=== PATIENT | female | born 1965 | race Caucasian/White ===

== ENCOUNTER 2018-03-20 06:08 | Outpatient (CLI) | payer BC | END 2018-03-20 06:09 | disposition critical access hospital (66) | LOC: EMS 06:08 | PROVIDERS: ATTEND Surgery | DX: R06.02 Shortness of breath (principal); R61 Generalized hyperhidrosis | CPT/HCPCS: A0425; A0427 ==

== ENCOUNTER 2018-03-20 06:22 | Emergency (ER) | payer BC ==
[2018-03-20 06:59] LABS: BASOPHILS % (AUTO) 0.5 %; EOSINOPHILS % (AUTO) 0.2 %; HGB - HEMOGLOBIN 8.5 g/dL (12.0-16.0); LYMPHOCYTES % (AUTO) 3.7 %; MEAN CORPUSCULAR HEMOGLOBIN 25.6 pg (27.0-31.0); MEAN CORPUSCULAR VOLUME 82.8 fL (81.0-99.0); MEAN PLATELET VOLUME 7.3 fL (7.9-10.8); MONOCYTES % (AUTO) 3.6 %; PLT - PLATELET COUNT 538 10^3/uL (130-450); RED CELL DISTRIBUTION WIDTH 17.7 % (12.0-15.0); WHITE BLOOD COUNT 20.2 x10^3/uL (4.8-10.8)
[2018-03-20 07:01] LABS: ABNORMAL LYMPHS % (MANUAL) 0 %; INR 1.6 (0.8-1.2); PT - PROTHROMBIN TIME 18.3 secs (9.9-12.6)
[2018-03-20 07:10] LABS: ALBUMIN/GLOBULIN RATIO 0.4 (1.0-2.2); BILIRUBIN,TOTAL 1.4 mg/dL (0.2-1.0); CALCIUM 7.8 mg/dL (8.5-10.3); CREATININE 1.1 mg/dL (0.4-1.0); TOTAL PROTEIN 7.4 g/dL (6.7-8.2)
--- NOTE | 2018-03-20 07:19 | ED Physician Documentation ---
History of Present Illness - Stated complaint Stated Complaint: SOA - Chief complaint Chief Complaint: Resp - Additonal information Additional information: hx [facility] pt [facility] report not available at this time 52 f states she has a pmhx of COPD DM and I assume HTN and HLD based on her meds recent medical care for a diabetic foot wound - she has a wound vac on and a PICC line for ab but she doesn't know what ab aslo recent transfusion for anemia - she says she has been anemic her whole life but does not know why - she does not recall a GI work up - she state no bloody black BM she states she started to get SOA yesterday morning worsened throughout the day severe last night 911 called per report she has rales and sats < 50% was placed in BiPAP, given lasix nitro paste and morphine with improvement she denies fever denies cough denies CP no leg edema no travel no hx cardiac dz or CHF Review of Systems Constitutional: denies: Fever, Chills Throat: denies: Sore throat Cardiac: denies: Chest pain / pressure, Palpitations Respiratory: reports: Dyspnea. denies: Cough GI: denies: Abdominal Pain, Nausea, Vomiting Neurologic: denies: Generalized weakness Endocrine: denies: Easy bruising / bleeding Immunocompromised: denies: Immunocompromised PD PAST MEDICAL HISTORY - Past Medical History Past Medical History: Yes Respiratory: None Neuro: None Endocrine/Autoimmune: Type 1 diabetes HEENT: None Derm: None - Past Surgical History Past Surgical History: Yes - Present Medications Home Medications: Ambulatory Orders Medication Instructions Recorded Confirmed Albuterol Sulfate [Proair Hfa 2 puffs INH Q4H PRN 03/20/18 03/20/18 Inhaler] Aspirin 325 mg PO DAILY 03/20/18 03/20/18 Cholecalciferol (Vitamin D3) 1,000 unit PO BID 03/20/18 03/20/18 [Vitamin D3] Cilostazol 100 mg PO BID 03/20/18 03/20/18 Dextroamphetamine/Amphetamine 45 mg PO BID 03/20/18 03/20/18 [Adderall 30 mg Tablet] Diltiazem HCl [Diltiazem ER] 120 mg PO DAILY 03/20/18 03/20/18 Duloxetine HCl 90 mg PO DAILY 03/20/18 03/20/18 Ferrous Sulfate 325 mg PO TID 03/20/18 03/20/18 Gabapentin 300 mg PO TID 03/20/18 03/20/18 Hydrocodone/Acetaminophen 2 tab PO DAILY PRN 03/20/18 03/20/18 [Hydrocodone-Acetamin 5-325 mg] Insulin Glargine [Lantus Solostar] 30 units SUBQ BID 03/20/18 03/20/18 Insulin Lispro [Humalog Kwikpen 0 - 3 units SUBQ TIDWM 03/20/18 03/20/18 U-100] Levothyroxine Sodium [Synthroid] 50 mcg PO QDAC 03/20/18 03/20/18 Lisinopril 40 mg PO DAILY 03/20/18 03/20/18 Metoclopramide [Reglan] 10 mg PO ACHS 03/20/18 03/20/18 Prazosin HCl 5 mg PO QPM 03/20/18 03/20/18 Prazosin [Minipress] 1 mg PO 0800,1200,1700 03/20/18 03/20/18 Rosuvastatin Calcium [Crestor] 40 mg PO QPM 03/20/18 03/20/18 clonazePAM [Clonazepam] 0.5 mg PO DAILY 03/20/18 03/20/18 clonazePAM [Clonazepam] 1 mg PO QPM 03/20/18 03/20/18 - Allergies Allergies/Adverse Reactions: Allergies Allergy/AdvReac Type Severity Reaction Status Date / Time Penicillins AdvReac Unknown Verified 03/20/18 06:38 - Social History Does the pt smoke?: No Smoking Status: Never smoker Does the pt drink ETOH?: No Does the pt have substance abuse?: No - Immunizations Immunizations are current?: No - POLST Patient has POLST: No PD ED PE NORMAL - Vitals Vital signs reviewed: Yes - General General: Alert and oriented X 3 - HEENT HEENT: PERRL - Neck Neck: Supple, no meningeal sign - Cardiac Cardiac: RRR (little tachy) - Respiratory Respiratory: Other (kranthi rales all the way up) - Abdomen Abdomen: Soft, Non tender - Derm Derm: Normal color - Extremities Extremities: No edema, Other (wound vac and dressing to R foot - not removed as we cannot replace in the ER) - Neuro Neuro: Alert and oriented X 3 Results - Vitals Vitals: Vital Signs - 24 hr 03/20/18 03/20/18 03/20/18 06:23 06:34 06:38 Temperature 35.9 C L Heart Rate 102 H 101 H 101 H Respiratory 57 H 36 H 48 H Rate Blood Pressure 140/62 H 119/95 H O2 Saturation 81 L 91 L 93 03/20/18 03/20/18 03/20/18 06:40 06:58 07:00 Temperature Heart Rate 101 H 103 H Respiratory 40 H Rate Blood Pressure 130/52 L O2 Saturation 96 03/20/18 03/20/18 03/20/18 07:07 08:00 08:20 Temperature Heart Rate 107 H 107 H Respiratory 18 Rate Blood Pressure 130/52 L 141/64 H O2 Saturation 91 L 03/20/18 03/20/18 03/20/18 09:30 10:00 10:30 Temperature Heart Rate 108 H 108 H 102 H Respiratory 34 H 38 H 38 H Rate Blood Pressure 140/64 H 151/65 H 132/61 H O2 Saturation 89 L 86 L 94 03/20/18 03/20/18 11:23 12:30 Temperature Heart Rate 105 H 107 H Respiratory 39 H 34 H Rate Blood Pressure 138/65 H 154/67 H O2 Saturation 91 L 89 L Oxygen O2 Source BIPAP - EKG (time done) 0641 Rate: Rate (enter#) (100) Rhythm: Sinus tachycardia, Other (PVCs) [place]: Normal Intervals: Normal SC, Prolonged QT Ischemia: Non specific changes (no STEMIK) Compare to prior EKG: Old EKG unavailable - Labs Labs: Laboratory Tests 03/20/18 03/20/18 03/20/18 06:50 06:50 06:50 WBC 20.2 H RBC 3.30 L Hgb 8.5 L Hct 27.3 L MCV 82.8 MCH 25.6 L MCHC 31.0 L RDW 17.7 H Plt Count 538 H MPV 7.3 L Neut # (Auto) Not Reportable Lymph # (Auto) Not Reportable [place] # (Auto) Not Reportable Eos # (Auto) Not Reportable Baso # (Auto) Not Reportable Absolute Nucleated RBC Not Reportable Total Counted 100 Band Neuts % (Manual) 12 H Abnorm Lymph % (Manual) 0 Nucleated RBC % Not Reportable Neutrophils # (Manual) 16.6 H Lymphocytes # (Manual) 1.8 Monocytes # (Manual) 1.6 H Eosinophils # (Manual) 0.2 Basophils # (Manual) 0.0 Differential Comment MANUAL DIFFERENTIAL Platelet Estimate INCREASED (>450,000) RBC Morph Micro Appear NORMAL APPEARANCE PT 18.3 H INR 1.6 H Bld Gas Analysis Time Sample Site ABG pH ABG pCO2 ABG pO2 ABG HCO3 ABG Total CO2 ABG O2 Saturation ABG Base Excess Oliverio Test O2 Delivery Device FiO2 EPAP IPAP Sodium 136 Potassium 3.0 L Chloride 93 L Carbon Dioxide 25 Anion Gap 18.0 H BUN 35 H Creatinine 1.1 H Estimated GFR (MDRD) 52 L Glucose 237 H Lactic Acid Calcium 7.8 L Total Bilirubin 1.4 H AST 239 H ALT 128 H Alkaline Phosphatase 445 H Troponin I B-Natriuretic Peptide Total Protein 7.4 Albumin 2.0 L Globulin 5.4 H Albumin/Globulin Ratio 0.4 L Lipase 14 L Serum HCG, Qual Urine Color Urine Clarity Urine pH Ur Specific [place] Urine Protein Urine Glucose (UA) Urine Ketones Urine Occult Blood Urine Nitrite Urine Bilirubin Urine Urobilinogen Ur Leukocyte Esterase Urine RBC Urine WBC Ur Squamous Epith Cells Urine Bacteria Urine Casts Ur Microscopic Review Urine Culture Comments 03/20/18 03/20/18 03/20/18 06:50 06:50 06:50 WBC RBC Hgb Hct MCV MCH MCHC RDW Plt Count MPV Neut # (Auto) Lymph # (Auto) [place] # (Auto) Eos # (Auto) Baso # (Auto) Absolute Nucleated RBC Total Counted Band Neuts % (Manual) Abnorm Lymph % (Manual) Nucleated RBC % Neutrophils # (Manual) Lymphocytes # (Manual) Monocytes # (Manual) Eosinophils # (Manual) Basophils # (Manual) Differential Comment Platelet Estimate RBC Morph Micro Appear PT INR Bld Gas Analysis Time Sample Site ABG pH ABG pCO2 ABG pO2 ABG HCO3 ABG Total CO2 ABG O2 Saturation ABG Base Excess Oliverio Test O2 Delivery Device FiO2 EPAP IPAP Sodium Potassium Chloride Carbon Dioxide Anion Gap BUN Creatinine Estimated GFR (MDRD) Glucose Lactic Acid Calcium Total Bilirubin AST ALT Alkaline Phosphatase Troponin I 0.13 B-Natriuretic Peptide 377 H Total Protein Albumin Globulin Albumin/Globulin Ratio Lipase Serum HCG, Qual NEGATIVE Urine Color Urine Clarity Urine pH Ur Specific [place] Urine Protein Urine Glucose (UA) Urine Ketones Urine Occult Blood Urine Nitrite Urine Bilirubin Urine Urobilinogen Ur Leukocyte Esterase Urine RBC Urine WBC Ur Squamous Epith Cells Urine Bacteria Urine Casts Ur Microscopic Review Urine Culture Comments 03/20/18 03/20/18 03/20/18 07:20 07:47 08:23 WBC RBC Hgb Hct MCV MCH MCHC RDW Plt Count MPV Neut # (Auto) Lymph # (Auto) [place] # (Auto) Eos # (Auto) Baso # (Auto) Absolute Nucleated RBC Total Counted Band Neuts % (Manual) Abnorm Lymph % (Manual) Nucleated RBC % Neutrophils # (Manual) Lymphocytes # (Manual) Monocytes # (Manual) Eosinophils # (Manual) Basophils # (Manual) Differential Comment Platelet Estimate RBC Morph Micro Appear PT INR Bld Gas Analysis Time 0751 Sample Site RIGHT RADIAL ABG pH 7.48 H ABG pCO2 39 ABG pO2 122 H ABG HCO3 28.5 H ABG Total CO2 29.7 H ABG O2 Saturation 98 ABG Base Excess 4.6 H Oliverio Test POSITIVE O2 Delivery Device BiPAP FiO2 100.00 EPAP 6 IPAP 12 Sodium Potassium Chloride Carbon Dioxide Anion Gap BUN Creatinine Estimated GFR (MDRD) Glucose Lactic Acid 1.5 Calcium Total Bilirubin AST ALT Alkaline Phosphatase Troponin I B-Natriuretic Peptide Total Protein Albumin Globulin Albumin/Globulin Ratio Lipase Serum HCG, Qual Urine Color YELLOW Urine Clarity CLEAR Urine pH 5.0 Ur Specific [place] >=1.030 H Urine Protein 100 H Urine Glucose (UA) NEGATIVE Urine Ketones NEGATIVE Urine Occult Blood TRACE-INTA Urine Nitrite NEGATIVE Urine Bilirubin NEGATIVE Urine Urobilinogen 0.2 (NORMAL) Ur Leukocyte Esterase NEGATIVE Urine RBC 0-5 Urine WBC 0-3 Ur Squamous Epith Cells FEW Squamous Urine Bacteria Few Urine Casts 0-2 Hyaline Casts Ur Microscopic Review INDICATED Urine Culture Comments NOT INDICATED - Rads (name of study) CXR Radiology: See rad report (severe pulm edema vs ARDS) CTPA Radiology: See rad report (no PE, possible pulm HTN, extensive diffuse pulm edema pattern of uncertain etiology with kranthi effusions and mild cardiomegaly (will ask [employer]LE[employer] AND [employer]CHIVES DIRECTOR to fax to Prov)) PD MEDICAL DECISION MAKING - ED course ED course: abd CXR and resp failure : flash pulm edema vs ARDS vs diffuse pna vs septic emboli EKG s acute ischemia first trop 0.13 - could have ACS as cause of edema or trop could be bumped 2/2 prolonged hypoxia - needs serial enzymes and echo already had nitro and lasix, I gave asprine as well - will discuss heparin with admitting doc and after getting infor from [facility] about her recent anemia and trasnfusion ([facility] no GIB in dx dx and her trop is down from last admit - defer heprin to admitting doc) anemia - apparently had recent transfusion - trying to get records from [facility] (per [facility] chronic and was transfused) elevated LFTs no abd pain or fever, no known hx liver dz - per [facility] LFTs were fine last week - ? shock liver consider infectious cause for CXR - already on rocephin vanco and flagyl via PICC for diabetic foot - so not needing more ab emergently pt now stable, breathing well, able to talk, sats up called [facility] for info pt was admitted 03/04-03/10 had nec fasc, surgical debridement, wound vac, PICC with rocephin flagy vanco, MRSA + her trop was 0.32 then, EKG s ischemia her WBC was 13.2 her H/H were 6/20 and she was transfused they will send over dc summary got dc summary per dc summary she had abn CXR there too per ED note she developed dyspnea nd req O2 after transfusion txed with nitrates lasix and duoneb summary states pt had resp failure with hypoxia was started on BiPAP was weaned to NC and was dced on 3 L NC home o2 her anemia was attributed to kidney dz pt doing much much better now on BiPAP still O2 req but awake alert talking in short sentences requesting ice chips at first felt this was ACS with flash pulm michelle but BNP minimally elevated and with information from [facility] re recent infection now with more extensive ddx could also be ARDS with recent infection, or septic pulm emboli from endocarditis will need echo, CT chest , maybe exapnd spectrum of antibiotics, ICU level care for resp failure spoke to hospitalist Dr Joy at 0820 and reviewed all results and she states she will admit to ICU at [facility] 1120 hospitalist saw pt and reviewed xray and labs and decided pt should be transferred so gave the IV ab pt has been getting through PICC and ordered the CT chest (pt states not preg - will add on HCG but will shield and image now) spoke to gear hobber operator at [facility] Dr Noel and he accepts pt in transfer - sent paperwork from [facility] with pt and also will ask [employer]LE[employer] AND ARCHIVES DIRECTOR to fax CT report which came after pt dc Departure - Departure Disposition: 02 Transfer Acute Care Hosp Clinical Impression: Abnormal chest xray, Abnormal liver enzymes Respiratory failure Qualifiers: Chronicity: acute Respiratory failure complication: hypoxia Qualified Code(s): J96.01 - Acute respiratory failure with hypoxia Anemia Qualifiers: Anemia type: unspecified type Qualified Code(s): D64.9 - Anemia, unspecified Leukocytosis Qualifiers: Leukocytosis type: bandemia Qualified Code(s): D72.825 - Bandemia Condition: Serious Discharge Date/Time: 03/20/18 12:40
[2018-03-20] MEDS ORDERED: ASPIRIN CHEW 81 MG TABLET PO STA (07:24)
[2018-03-20 07:30] LABS: BAND NEUTROPHILS % (MANUAL) 12 %; DIFFERENTIAL COMMENT MANUAL DIFFERENTIAL; EOSINOPHILS # (MANUAL) 0.2 10^3/uL (0-0.7); LYMPHOCYTES # (MANUAL) 1.8 10^3/uL (1.5-3.5); LYMPHOCYTES % (MANUAL) 9 %; MONOCYTES # (MANUAL) 1.6 10^3/uL (0.0-1.0); NEUTROPHILS # (MANUAL) 16.6 10^3/uL (1.5-6.6); NEUTROPHILS % (MANUAL) 70 %; PLATELET ESTIMATE, MANUAL INCREASED (>450,000) (NORMAL); RBC MORPHOLOGY (MULTIPLE) NORMAL APPEARANCE (NORMAL)
--- NOTE | 2018-03-20 07:45 | XRAY Report ---
Reason: dyspnea Procedure Date: 03/20/2018 Accession Number: [id number] / [id number] Procedure: XR - Chest 1 View X-Ray CPT Code: 18804 FULL RESULT: EXAM: CHEST RADIOGRAPHY EXAM DATE: 03/20/2018 06:57 AM. CLINICAL HISTORY: Dyspnea. COMPARISON: None. TECHNIQUE: 1 view. FINDINGS: Lungs/Pleura: Extensive dense bilateral interstitial and airspace opacities are seen. No pneumothorax. Mediastinum: Heart size is partly obscured. Mediastinal contour is not well visualized. Other: Right-sided PICC with the tip in the mid lower SVC. IMPRESSION: 1. Extensive dense bilateral interstitial and airspace opacities. 2. Right-sided PICC with the tip in the mid lower SVC. RADIA
[2018-03-20 07:50] LABS: BILIRUBIN,URINE NEGATIVE (NEGATIVE); GLUCOSE, URINE (UA) NEGATIVE (NEGATIVE); KETONES,URINE (UA) NEGATIVE (NEGATIVE); LEUKOCYTE ESTERASE, URINE NEGATIVE (NEGATIVE); NITRITE,URINE NEGATIVE (NEGATIVE); OCCULT BLOOD,URINE TRACE-INTA (NEGATIVE); PROTEIN,URINE 100 mg/dL (NEGATIVE); UROBILINOGEN,URINE 0.2 (NORMAL) E.U./dL (NORMAL)
[2018-03-20 07:58] LABS: CLARITY,URINE CLEAR (CLEAR)
[2018-03-20 07:59] LABS: ABG PCO2 39 mmHg (34-45); ABG PH 7.48 (7.35-7.45); ABG PO2 122 mmHg (80-100)
[2018-03-20 08:00] LABS: ABG BASE EXCESS 4.6 mmol/L (-2.0-3.0); ABG HCO3 28.5 mmol/L (22.0-26.0); ABG OXYGEN SATURATION 98 % (94-98); ABG TCO2 29.7 MMOL/L (21.0-29.0); ALLEN TEST POSITIVE
[2018-03-20 08:26] LABS: BACTERIA,URINE Few /HPF (None Seen); CASTS, URINE 0-2 Hyaline Casts /LPF; RBC,URINE 0-5 /HPF (0-5); SQUAMOUS EPITHELIAL CELL,UR FEW Squamous (<= Few)
[2018-03-20] MEDS ORDERED: VANCOMYCIN INJ 1 GM in SODIUM CHLORIDE 0.9% 500 ML IV STA (11:25)
[2018-03-20] MEDS ORDERED: cefTRIAXone 1 GM in SODIUM CHLORIDE 0.9% MINIBAG 100 ML IV STA ×2 (11:25→12:23)
[2018-03-20] MEDS ORDERED: POTASSIUM CHLOR 10 MEQ/100 ML 10 MEQ/100 ML BAG IV ONE (11:35)
[2018-03-20] MEDS ORDERED: cefTRIAXone 250 MG VIAL ONE (11:42)
[2018-03-20] MEDS ORDERED: metroNIDAZOLE 500 MG/100 ML 500 MG/100 ML BAG IV SCH (12:00)
[2018-03-20] MEDS ORDERED: IOPAMIDOL-300 100 ML VIAL ONE (12:01)
[2018-03-20 12:58] VITALS: BP 154/67
[2018-03-20 13:23] LABS: HCG,QUALITATIVE BLOOD NEGATIVE
--- NOTE | 2018-03-20 14:20 | CT Report ---
Reason: abn CXR Procedure Date: 03/20/2018 Accession Number: [id number] / [id number] Procedure: CT - Chest Angio (PE) CPT Code: FULL RESULT: EXAM: CT ANGIOGRAM CHEST EXAM DATE: 03/20/2018 12:27 PM. CLINICAL HISTORY: Abnormal chest x-ray. COMPARISON: CHEST 1 VIEW 03/20/2018 6:46 AM. TECHNIQUE: Routine helical imaging was performed through the chest in the pulmonary arterial phase. IV Contrast: ISOVUE 300 80mL. Reconstructions: Coronal 3-D MIP reconstructions.Sagittal and coronal. In accordance with CT protocol optimization, one or more of the following dose reduction techniques were utilized for this exam: automated exposure control, adjustment of mA and/or KV based on patient size, or use of iterative reconstructive technique. FINDINGS: Pulmonary Arteries: Diagnostic quality: Adequate through the segmental arteries. Main pulmonary artery segment measures 3 cm in diameter. There are no appreciable intraluminal filling defects within the pulmonary arterial tree. RV/LV is within normal limits. There is no interventricular septal bowing. There is no reflux of contrast material in the IVC. Lungs/Pleura: There is symmetric extensive airspace confluent and groundglass opacity with lobular septal thickening and bilateral effusions more so on the right. Reconstructed images show paraseptal edema along the fissures. Mediastinum: There is mild cardiac enlargement with a cardiothoracic ratio of 14/25 cm. There are clustered subcentimeter left paralytic lymph nodes but the remaining mediastinum appears normal. Thoracic Aorta: Unremarkable. Upper Abdomen: Unremarkable. Other: Possible presence of diffuse subcutaneous edema/anasarca. IMPRESSION: 1. No evidence of acute pulmonary artery embolism. 2. Increased size of main pulmonary artery segment could indicate underlying pulmonary artery hypertension. 3. Extensive diffuse pulmonary edema pattern of uncertain etiology with bilateral effusions and mild cardiomegaly. Possible anasarca in the soft tissues. RADIA
[2018-03-20] MEDS ORDERED: IOPAMIDOL-300 100 ML VIAL IVP ONE (18:24)
[2018-03-21] MEDS ORDERED: POLYETHYLENE GLYCOL 3350 17 GM PACKET PO SCH (09:00)
== END 2018-03-20 12:40 | disposition short-term general hospital (02) ==
LOC: EDUNIT# → EDBD → ED 06:22
DX: R93.89 Abnormal findings on diagnostic imaging of other specified body structures (principal); R74.8 Abnormal levels of other serum enzymes; J96.01 Acute respiratory failure with hypoxia; D64.9 Anemia, unspecified; D72.825 Bandemia; R00.0 Tachycardia, unspecified; I49.3 Ventricular premature depolarization; J81.1 Chronic pulmonary edema; E10.9 Type 1 diabetes mellitus without complications; I10 Essential (primary) hypertension; E78.00 Pure hypercholesterolemia, unspecified
CPT/HCPCS: 36415; 36600; 71045; 71275; 80053; 81001; 82803; 83605; 83690; 83880; 84484; 84703; 85025; 85610; 87040; 93005; 96365; 99284; A9270; J3370; Q9967; 81003; 87086